=== PATIENT | female | born 1975 | race Caucasian/White ===

== ENCOUNTER 2017-02-07 13:03 | Inpatient (IN) | payer OTHER ==
[2017-02-07] MEDS ORDERED: Bupivacaine 0.5%/EPINEPHrine 1:200,000 50 ML MDV ONE (13:57)
[2017-02-07] MEDS ORDERED: Naloxone 0.4 MG/ML SDV IV PRN (16:57)
[2017-02-07] MEDS ORDERED: Sodium Chloride 0.9% 10 ML Syringe FLUSH PRN (17:06)
[2017-02-07] MEDS: Dextrose 5%-Lactated Ringers 1,000 ML IV SCH ×2 (17:27→23:26)
[2017-02-07] MEDS: HYDROmorphone/Normal Saline 15 MG/30 ML PCA IV PRN (17:28)
[2017-02-07] MEDS ORDERED: cefOXitin 2 GM in Sodium Chloride 0.9% 50 ML IV ONE (17:30)
[2017-02-07] MEDS: Pantoprazole 40 MG Vial IV SCH (17:41)
[2017-02-07] MEDS: Ondansetron 4 MG/2 ML SDV IVPUSH PRN (17:44)
[2017-02-07] MEDS: LORazepam 2 MG/ML MDV IVPUSH PRN (21:09)
[2017-02-07] MEDS ORDERED: hydrOXYzine HCl 50 MG/ML SDV IM PRN (21:36)
[2017-02-08] MEDS ORDERED: diphenhydrAMINE 50 MG/ML SDV IVPUSH PRN (00:03)
[2017-02-08] MEDS: diphenhydrAMINE 50 MG/ML SDV IVPUSH PRN ×2 (00:47→06:58)
[2017-02-08] MEDS: HYDROmorphone/Normal Saline 15 MG/30 ML PCA IV PRN ×3 (02:45→22:10)
[2017-02-08] MEDS: LORazepam 2 MG/ML MDV IVPUSH PRN ×2 (03:29→11:54)
[2017-02-08] MEDS: Ondansetron 4 MG/2 ML SDV IVPUSH PRN (06:15)
[2017-02-08] MEDS: Dextrose 5%-Lactated Ringers 1,000 ML IV SCH ×2 (06:15→23:35)
[2017-02-08] MEDS: Pantoprazole 40 MG Vial IV SCH (06:18)
[2017-02-08] MEDS: fentaNYL 25 MCG/HR Transdermal Patch TRDERM SCH (08:00)
--- NOTE | 2017-02-08 08:53 | PCM.HP ---
H&P History of Present Illness - General Date of Service: 02/08/17 Admit Problem/Dx: Admission Diagnosis/Problem Admission Diagnosis/Problem Abdominal pain Source of Information: Patient History Limitations: Reports: No limitations - History of Present Illness Onset of Symptoms: Reports: gradual Duration of Symptoms: Reports: Day(s): (5), Getting worse, Intermittent, Waxing/ waning Location: Reports: abdomen, generalized Quality: Reports: Ache, Other (twisting) Severity: moderate Improves with: Reports: Medication Worsens with: Reports: Eating, Movement Context: Reports: sick contact Associated Symptoms: Reports: nausea/vomiting Abdomen Pain Score (Numeric/FACES): 6 - Related Data Allergies/Adverse Reactions: Allergies Allergy/AdvReac Type Severity Reaction Status Date / Time morphine Allergy Itching Verified 02/07/17 20:14 NSAIDS (Non-Steroidal Allergy Other Verified 02/07/17 16:42 Anti-Inflamma tizanidine Allergy Other Verified 02/07/17 16:42 Home Medications: Home Meds ALPRAZolam [Xanax] PO DAILY 02/07/17 [History] Doxylamine Succinate [Unisom Sleep Aid] 25 mg PO BEDTIME PRN 02/07/17 [History] Gabapentin [Neurontin] 300 mg PO TID 02/07/17 [History] Hydrochlorothiazide 25 mg PO DAILY 02/07/17 [History] Losartan [Cozaar] 50 mg PO DAILY 02/07/17 [History] Potassium Chloride 10 meq PO DAILY 02/07/17 [History] Venlafaxine [Effexor XR] 150 mg PO DAILY 02/07/17 [History] oxyCODONE [Oxycodone HCl] 10 mg PO BID PRN 02/07/17 [History] Past Medical History Gastrointestinal History: Reports: Bowel obstruction 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, Musculoskeletal History: Reports: Back pain, chronic Psychiatric History: Reports: Anxiety Hematologic History: Reports: B12 deficiency - Past Surgical History HEENT Surgical History: Reports: Tonsillectomy GI Surgical History: Reports: Bariatric procedure Social & Family History - Family History Family Medical History: Noncontributory - Tobacco Use Smoking Status *Q: Light Tobacco Smoker Years of Tobacco use: 21 Packs/Tins Daily: 0 Used Tobacco, but Quit: No Second Hand Smoke Exposure: No - Caffeine Use Caffeine Use: Reports: Coffee - Alcohol Use Days Per Week of Alcohol Use: 1 Number of Drinks Per Day: 0 Total Drinks Per Week: 0 - Recreational Drug Use Recreational Drug Use: No H&P Review of Systems - Review of Systems: Review Of Systems: See Below General: Reports: weakness, fatigue HEENT: Reports: no symptoms Pulmonary: Reports: No Symptoms Cardiovascular: Reports: no symptoms Gastrointestinal: Reports: Abdominal pain (generalized), Nausea Genitourinary: Reports: no symptoms Musculoskeletal: Reports: no symptoms Skin: Reports: other (itches all over which she states is normal when she is on narcotics ) Psychiatric: Reports: anxiety (crying) Neurological: Reports: No Symptoms Hematologic/Lymphatic: Reports: no symptoms Immunologic: Reports: no symptoms Exam - Exam Exam: See Below - Vital Signs Vital Signs: Last Vital Signs Temp 96.4 F 02/08/17 07:00 Pulse 82 02/08/17 07:00 Resp 16 02/08/17 07:00 BP 111/71 02/08/17 07:00 Pulse Ox 96 02/08/17 07:00 Weight: 187 lb - Exam Quality Assessment: DVT prophylaxis General: moderate distress HEENT: PERRLA, Conjunctiva clear Neck: supple, trachea midline Lungs: Clear to auscultation, Normal respiratory effort Cardiovascular: regular rate, regular rhythm Abdomen: tenderness (mid epigastric and left upper and mid quadrants ) (Female) Exam: Deferred Rectal (Female) Exam: Deferred Back Exam: normal inspection Extremities: normal inspection Skin: warm, dry, intact Neurological: cranial nerves intact, reflexes equal bilateral Neuro Extensive - Mental Status: alert, oriented x3, normal cognition, memory intact Neuro Extensive - Motor, Sensory, Reflexes: CN II-XII intact Psychiatric: alert, anxious - Patient Data Lab Results last 24 hrs: Laboratory Results - last 24 hr 02/08/17 02/08/17 Range/Units 04:12 04:12 WBC 6.4 (4.5-11.0) K/uL RBC 3.86 (3.30-5.50) M/uL Hgb 11.6 L (12.0-15.0) g/dL Hct 35.5 L (36.0-48.0) % MCV 92 (80-98) fL MCH 30 (27-31) pg MCHC 33 (32-36) % Plt Count 278 (150-400) K/uL Sodium 145 (140-148) mmol/L Potassium 3.4 L (3.6-5.2) mmol/L Chloride 108 (100-108) mmol/L Carbon Dioxide 29 (21-32) mmol/L Anion Gap 11.4 (5.0-14.0) mmol/L BUN 3 L (7-18) mg/dL Creatinine 0.6 (0.6-1.0) mg/dL Est Cr Clr Drug Dosing 128.95 mL/min Estimated GFR (MDRD) > 60 (>60) Glucose 81 (74-106) mg/dL Calcium 8.0 L (8.5-10.1) mg/dL Phosphorus 3.7 (2.5-4.9) mg/dL Magnesium 1.7 L (1.8-2.4) mg/dL Ferritin 27 (8-388) ng/ml Total Bilirubin 0.2 (0.2-1.0) mg/dL AST 14 L (15-37) U/L ALT 21 (12-78) U/L Alkaline Phosphatase 54 (46-116) U/L Total Protein 6.1 L (6.4-8.2) g/dL Albumin 3.1 L (3.4-5.0) g/dL Globulin 3.0 (2.3-3.5) g/dL Albumin/Globulin Ratio 1.0 L (1.2-2.2) Vitamin B12 278 (193-986) pg/ml Folate 15.3 (8.6-58.9) ng/ml Result Diagrams: 02/08/17 04:12 02/08/17 04:12 *Q Meaningful Use (ADM) - VTE *Q VTE Criteria *Q: - Stroke *Q Stroke Criteria *Q: - AMI *Q AMI Criteria *Q: Problem List Initiated/Reviewed/Updated: Yes Orders Last 24hrs: Active Orders 24 hr Category Date Time Status Patient Status [ADT] Routine ADT 02/07/17 16:30 Active Ambulate [RC] QID Care 02/07/17 17:06 Active Intake and Output [RC] QSHIFT Care 02/07/17 17:18 Active Oxygen Therapy [RC] PRN Care 02/07/17 17:07 Active Peripheral IV Care [RC] . DIRECTED Care 02/07/17 17:18 Active Pulse Oximetry [RC] CONTINUOUS Care 02/07/17 17:13 Active Up to Chair [RC] QID Care 02/07/17 17:06 Active VTE/DVT Education [RC] Per Unit Routine Care 02/07/17 17:07 Active Verify Patient Consent Obtain [RC] ASDIRECTED Care 02/08/17 07:28 Active Vital Signs [RC] Q4H Care 02/07/17 17:07 Active Nothing per Oral Now Diet [DIET] Diet 02/07/17 Dinner Active Abdomen 2V AP Flat Upright [CR] Routine Exams 02/08/17 04:00 Taken Dextrose 5%-Lactated Ringers 1,000 ml Med 02/07/17 16:45 Active IV ASDIRECTED HYDROmorphone/Normal Saline [Dilaudid AUTO SERVICE STATION ATTENDANT 15 MG in NS Med 02/07/17 16:57 Active 30 ML] 0 mg IV ASDIRECTED PRN LORazepam [Ativan] Med 02/07/17 17:00 Active 0.5 mg IVPUSH Q4H PRN Naloxone [Narcan] Med 02/07/17 16:57 Active 0.1 mg IV ASDIRECTED PRN Ondansetron [Zofran] Med 02/07/17 16:59 Active 4 mg IVPUSH Q4H PRN Pantoprazole [Protonix IV] Med 02/09/17 09:00 Active 40 mg IV DAILY Pantoprazole [Protonix IV] Med 02/07/17 18:00 Active 40 mg IV Q12H Sodium Chloride 0.9% [Saline Flush] Med 02/07/17 17:06 Active 10 ml FLUSH ASDIRECTED PRN cefOXitin [Mefoxin] 2 gm Med 02/08/17 14:00 Active Sodium Chloride 0.9% [Normal Saline] 50 ml IV ONCALL diphenhydrAMINE [Benadryl] Med 02/08/17 00:03 Active 25 - 50 mg IVPUSH Q4H PRN fentaNYL [Duragesic] Med 02/08/17 07:30 Active 25 mcg TRDERM Q72H hydrOXYzine HCl [Vistaril] Med 02/07/17 21:36 Active 100 mg IM Q4H PRN Peripheral IV Insertion Adult [OM.PC] Routine Oth 02/07/17 17:06 Ordered Sequential Compression Device [OM.PC] Per Unit Routine Oth 02/07/17 17:13 Ordered Resuscitation Status Routine Resus Stat 02/07/17 17:06 Ordered Medication Orders Diphenhydramine HCl (Benadryl) 25 - 50 mg IVPUSH Q4H PRN PRN Reason: Itching Fentanyl (Duragesic) 25 mcg TRDERM Q72H [facility] Last Admin: 02/08/17 08:00 Dose: 25 mcg Hydromorphone HCl (Dilaudid Garage Worker 15 Mg In Ns 30 Ml) 0 mg IV ASDIRECTED PRN; Protocol PRN Reason: AUTO SERVICE 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 ATTENDANT PAIN CONTROL Last Admin: 02/08/17 02:45 Dose: 15 mg Admin: 02/07/17 17:28 Dose: 15 mg Hydroxyzine HCl (Vistaril) 100 mg IM Q4H PRN PRN Reason: Anxiety Last Admin: 02/07/17 22:04 Dose: 100 mg Dextrose/Lactated Ringer's (Dextrose 5%-Lactated Ringers) 1,000 mls @ 150 mls/ hr IV ASDIRECTED ALYSSA Last Admin: 02/08/17 06:15 Dose: 150 mls/hr Infusion: 02/08/17 06:07 Dose: 150 mls/hr Admin: 02/07/17 23:26 Dose: 150 mls/hr Infusion: 02/07/17 23:26 Dose: 150 mls/hr Admin: 02/07/17 17:27 Dose: 150 mls/hr Cefoxitin Sodium 2 gm/ Sodium (Chloride) 50 mls @ 100 mls/hr IV ONCALL ONE Stop: 02/08/17 14:29 Lorazepam (Ativan) 0.5 mg IVPUSH Q4H PRN PRN Reason: ANXIETY Last Admin: 02/08/17 03:29 Dose: 0.5 mg Admin: 02/07/17 21:09 Dose: 0.5 mg Naloxone HCl (Narcan) 0.1 mg IV ASDIRECTED PRN PRN Reason: decreased respiratory rate Ondansetron HCl (Zofran) 4 mg IVPUSH Q4H PRN PRN Reason: Nausea Last Admin: 02/08/17 06:15 Dose: 4 mg Admin: 02/07/17 17:44 Dose: 4 mg Pantoprazole Sodium (Protonix Iv) 40 mg IV Q12H ALYSSA Stop: 02/08/17 18:01 Last Admin: 02/08/17 06:18 Dose: 40 mg Admin: 02/07/17 17:41 Dose: 40 mg Pantoprazole Sodium (Protonix Iv) 40 mg IV DAILY ALYSSA Sodium Chloride (Saline Flush) 10 ml FLUSH ASDIRECTED PRN PRN Reason: Keep Vein Open Assessment: Partial Small Bowel Obstruction Plan: See Copy of orders Isabella Stephens
--- NOTE | 2017-02-08 08:57 | CR ---
Findings: Mildly prominent small bowel loop left midabdomen. There are a few air-fluid levels. Howev er contrast is now within the colon. Partial small bowel obstruction cannot be excluded.
[2017-02-08] MEDS ORDERED: Dexamethasone 4 MG/ML SDV ONE (09:43)
[2017-02-08] MEDS ORDERED: Ondansetron 4 MG/2 ML SDV ONE (09:43)
[2017-02-08] MEDS ORDERED: Neostigmine Methylsulfate 1 MG/ML 5 ML Syringe ONE (09:43)
[2017-02-08] MEDS ORDERED: Succinylcholine/Normal Saline 200 MG/10 ML Syringe ONE (09:43)
[2017-02-08] MEDS ORDERED: Propofol 200 MG/20 ML SDV ONE (09:43)
[2017-02-08] MEDS ORDERED: Rocuronium 50 MG/5 ML Vial ONE (09:43)
[2017-02-08] MEDS ORDERED: fentaNYL 250 MCG/5 ML SDV ONE ×2 (09:43→14:19)
[2017-02-08] MEDS ORDERED: Meropenem 500 MG SDV ONE (11:28)
[2017-02-08] MEDS ORDERED: Midazolam 1 MG/ML 2 ML SDV ONE (12:40)
[2017-02-08] MEDS: cefOXitin 2 GM in Sodium Chloride 0.9% 50 ML IV ONE ×2 (12:47→13:29)
[2017-02-08] MEDS ORDERED: Lactated Ringers 1,000 ML ONE (13:22)
[2017-02-08] MEDS ORDERED: fentaNYL 100 MCG/2 ML SDV IVPUSH ONE (14:40)
[2017-02-08] MEDS ORDERED: hydrOXYzine HCl 50 MG/ML SDV IM ONE (14:40)
[2017-02-08] MEDS ORDERED: Meperidine PF 100 MG/ML Syringe IM ONE (15:15)
[2017-02-08] MEDS ORDERED: Ondansetron 4 MG/2 ML SDV IVPUSH ONE (15:45)
[2017-02-08] MEDS: MVI, Adult with Vitamin K 10 ML, Chromium/Copper/Mang/Selen/Zn 1 ML in Dextrose 5%-Lact... IV SCH ×3 (17:50)
[2017-02-08] MEDS: cefOXitin 2 GM in Sodium Chloride 0.9% 50 ML IV SCH (17:50)
[2017-02-08] MEDS: VERIFY FENTANYL PATCH TOP SCH ×2 (17:52→20:35)
[2017-02-08] MEDS ORDERED: Potassium Phosphates 20 MMOLE in Sodium Chloride 0.9% 250 ML IV ONE (18:00)
[2017-02-08] MEDS: hydrOXYzine HCl 50 MG/ML SDV IM PRN ×2 (19:23→23:36)
[2017-02-08] MEDS: Cyclobenzaprine 10 MG Tab PO PRN (20:33)
[2017-02-08] MEDS: Gabapentin 300 MG Cap PO SCH (20:33)
[2017-02-08] MEDS ORDERED: Potassium Phosphates 25 MMOLE in Sodium Chloride 0.9% 250 ML IV ONE (21:00)
[2017-02-08] MEDS: Magnesium Sulfate/Water 2 GM in Premix Bag 1 BAG IV SCH (22:12)
[2017-02-09] MEDS: cefOXitin 2 GM in Sodium Chloride 0.9% 50 ML IV SCH ×4 (00:52→18:06)
[2017-02-09] MEDS: LORazepam 2 MG/ML MDV IVPUSH PRN ×5 (00:52→18:28)
[2017-02-09] MEDS: Pantoprazole 40 MG Vial IV SCH (05:30)
[2017-02-09] MEDS: Magnesium Sulfate/Water 2 GM in Premix Bag 1 BAG IV SCH ×4 (05:31→22:47)
[2017-02-09] MEDS ORDERED: Pantoprazole 40 MG Vial IV SCH (09:00)
[2017-02-09] MEDS: Losartan 50 MG Tab PO SCH (09:18)
[2017-02-09] MEDS: Venlafaxine 75 MG Cap.ER PO SCH (09:22)
[2017-02-09] MEDS: Gabapentin 300 MG Cap PO SCH ×3 (09:22→20:08)
[2017-02-09] MEDS: Cyanocobalamin (Vitamin B12) 1,000 MCG/ML SDV IM SCH (09:26)
[2017-02-09] MEDS: VERIFY FENTANYL PATCH TOP SCH ×2 (09:27→20:08)
[2017-02-09] MEDS: hydrOXYzine HCl 50 MG/ML SDV IM PRN ×2 (10:29→16:40)
[2017-02-09] MEDS: Dextrose 5%-Lactated Ringers 1,000 ML IV SCH (10:36)
[2017-02-09] MEDS ORDERED: Iron Sucrose Complex 500 MG in Sodium Chloride 0.9% 250 ML IV SCH (12:00)
[2017-02-09] MEDS: Cyclobenzaprine 10 MG Tab PO PRN ×2 (12:59→19:46)
[2017-02-09] MEDS: MVI, Adult with Vitamin K 10 ML, Chromium/Copper/Mang/Selen/Zn 1 ML in Dextrose 5%-Lact... IV SCH ×3 (16:40)
[2017-02-09] MEDS: HYDROmorphone/Normal Saline 15 MG/30 ML PCA IV PRN (17:01)
[2017-02-10] MEDS: Dextrose 5%-Lactated Ringers 1,000 ML IV SCH (00:32)
[2017-02-10] MEDS: cefOXitin 2 GM in Sodium Chloride 0.9% 50 ML IV SCH ×5 (00:33→23:56)
[2017-02-10] MEDS: LORazepam 2 MG/ML MDV IVPUSH PRN (01:38)
[2017-02-10] MEDS: Cyclobenzaprine 10 MG Tab PO PRN ×2 (01:38→15:44)
[2017-02-10] MEDS: Magnesium Sulfate/Water 2 GM in Premix Bag 1 BAG IV SCH ×4 (03:22→21:34)
[2017-02-10] MEDS: Pantoprazole 40 MG Vial IV SCH (05:27)
[2017-02-10] MEDS ORDERED: Bupivacaine 0.5% 50 ML MDV ONE (06:23)
[2017-02-10] MEDS ORDERED: Lidocaine 1% with EPINEPHrine 1:100,000 50 ML MDV ONE (06:23)
[2017-02-10] MEDS ORDERED: Meropenem 500 MG SDV ONE (06:23)
[2017-02-10] MEDS ORDERED: fentaNYL 100 MCG/2 ML SDV ONE (07:22)
[2017-02-10] MEDS ORDERED: Midazolam 1 MG/ML 2 ML SDV ONE (07:22)
[2017-02-10] MEDS ORDERED: Propofol 200 MG/20 ML SDV ONE (07:22)
[2017-02-10] MEDS: Losartan 50 MG Tab PO SCH (12:45)
[2017-02-10] MEDS: Venlafaxine 75 MG Cap.ER PO SCH (12:48)
[2017-02-10] MEDS: VERIFY FENTANYL PATCH TOP SCH ×2 (12:51→20:42)
[2017-02-10] MEDS: Cyanocobalamin (Vitamin B12) 1,000 MCG/ML SDV IM SCH (13:08)
[2017-02-10] MEDS: Gabapentin 300 MG Cap PO SCH ×3 (13:09→20:41)
[2017-02-10] MEDS: MVI, Adult with Vitamin K 10 ML, Chromium/Copper/Mang/Selen/Zn 1 ML in Dextrose 5%-Lact... IV SCH ×3 (16:56)
[2017-02-10] MEDS: hydrOXYzine HCl 50 MG/ML SDV IM PRN (18:39)
[2017-02-10] MEDS: HYDROmorphone/Normal Saline 15 MG/30 ML PCA IV PRN (18:39)
[2017-02-11] MEDS: LORazepam 2 MG/ML MDV IVPUSH PRN ×3 (00:24→23:50)
[2017-02-11] MEDS: hydrOXYzine HCl 50 MG/ML SDV IM PRN ×2 (00:24→09:40)
[2017-02-11] MEDS: Dextrose 5%-Lactated Ringers 1,000 ML IV SCH ×2 (02:02→09:40)
[2017-02-11] MEDS: Magnesium Sulfate/Water 2 GM in Premix Bag 1 BAG IV SCH ×3 (04:00→16:31)
[2017-02-11] MEDS: Pantoprazole 40 MG Vial IV SCH (05:31)
[2017-02-11] MEDS: cefOXitin 2 GM in Sodium Chloride 0.9% 50 ML IV SCH ×4 (06:07→23:43)
[2017-02-11] MEDS: fentaNYL 25 MCG/HR Transdermal Patch TRDERM SCH (07:55)
[2017-02-11] MEDS: Gabapentin 300 MG Cap PO SCH ×3 (08:04→20:42)
[2017-02-11] MEDS: Venlafaxine 75 MG Cap.ER PO SCH (08:04)
[2017-02-11] MEDS: Losartan 50 MG Tab PO SCH (08:04)
[2017-02-11] MEDS: VERIFY FENTANYL PATCH TOP SCH ×2 (08:05→20:28)
[2017-02-11] MEDS: HYDROmorphone 2 MG Tab PO PRN ×4 (09:41→23:40)
--- NOTE | 2017-02-11 11:35 | PN ---
DATE OF SERVICE: 02/11/2017 SUBJECTIVE: Saima is postop day 3. She has been having difficulty with pain management. She feels like she would rather be on oral medication versus the DIGITAL ACCOUNT DIRECTOR. She has been up ambulating, had delayed primary closure. She did have an allergic reaction to Venofer, and we will be getting the Feraheme this morning and tomorrow pretreated by the ordered medication, tolerating step-1 gastric bypass diet. OBJECTIVE: GENERAL: Saima Jesus is a pleasant female. She is alert and orientated. SKIN: Warm and dry. VITAL SIGNS: Stable. HEENT: Negative. NECK: Supple. HEART: Regular rate and rhythm. LUNGS: Clear. ABDOMEN: Dressings dry and intact. Abdominal binder is on. EXTREMITIES: SCDs are on, and there is no peripheral edema. ASSESSMENT: 1. Exploratory laparotomy, small bowel resection, small bowel volvulus, bowel decompression, and closure of internal hernia, and repair of incisional hernia. Date of surgery 02/07/2017. 2. Delayed primary closure, 02/10/2017. PLAN: 1. Discontinue DIGITAL ACCOUNT DIRECTOR and continuous pulse ox. 2. Feraheme, orders faxed to pharmacy. 3. Dilaudid 2 mg 1 to 2 every 4 hours p.r.n. pain p.o. 4. Full liquid diet. 5. Good pulmonary toilet encouraged. 6. We will evaluate p.r.n. or in a.m. Isabella Dias PA-C /[id number]
[2017-02-11] MEDS: Cyclobenzaprine 10 MG Tab PO PRN (12:37)
[2017-02-11] MEDS ORDERED: Famotidine 20 MG/2 ML SDV IV SCH (12:45)
[2017-02-11] MEDS ORDERED: diphenhydrAMINE 50 MG/ML SDV IV SCH (12:45)
[2017-02-11] MEDS ORDERED: Hydrocortisone Sodium Succinate 100 MG/2 ML SDV IV SCH (12:45)
[2017-02-11] MEDS ORDERED: SODIUM FERRIC GLUCONATE CMPLEX IV SCH (13:00)
[2017-02-11] MEDS ORDERED: SODIUM CHLORIDE 0.9% IV SCH (13:00)
--- NOTE | 2017-02-11 14:08 | PN ---
DATE OF SERVICE: 02/09/2017 The patient has been afebrile with stable vital signs. There have been pain control issues. She is normally on oxycodone, Neurontin, and Alprazolam at home, which probably gives her some degree of tolerance. The narcotics at any rate seems to be satisfactory this morning. We will otherwise keep her n.p.o., except ice chips and some sips of water. We will plan to do a delayed primary closure, probably tomorrow morning. Rm Ochoa MD /[id number]
[2017-02-11] MEDS: MVI, Adult with Vitamin K 10 ML, Chromium/Copper/Mang/Selen/Zn 1 ML in Dextrose 5%-Lact... IV SCH ×3 (18:03)
[2017-02-12] MEDS: Cyclobenzaprine 10 MG Tab PO PRN ×3 (01:48→22:42)
[2017-02-12] MEDS: Dextrose 5%-Lactated Ringers 1,000 ML IV SCH (03:09)
[2017-02-12] MEDS: HYDROmorphone 2 MG Tab PO PRN ×5 (03:32→22:42)
[2017-02-12] MEDS: Pantoprazole 40 MG Vial IV SCH (06:10)
[2017-02-12] MEDS: cefOXitin 2 GM in Sodium Chloride 0.9% 50 ML IV SCH (06:10)
[2017-02-12] MEDS: LORazepam 2 MG/ML MDV IVPUSH PRN ×2 (06:18→13:28)
[2017-02-12] MEDS ORDERED: Bisacodyl 10 MG Supp RECTAL PRN (07:45)
[2017-02-12] MEDS ORDERED: Bisacodyl 10 MG Supp RECTAL ONE (09:00)
[2017-02-12] MEDS: VERIFY FENTANYL PATCH TOP SCH ×2 (09:08→20:34)
--- NOTE | 2017-02-12 09:17 | PN ---
DATE OF SERVICE: 02/12/2017 SUBJECTIVE: Saima has not had a bowel movement. She has been up ambulating, tolerating the step-2 gastric bypass diet well. She is developing on her right upper lip a cold sore, which she takes Valtrex for. Pain is better controlled using the oral Dilaudid. REVIEW OF SYSTEMS: Remainder of review of systems negative for any pertinent positives and negatives. OBJECTIVE: GENERAL: Saima Jesus is a 41-year-old female. VITAL SIGNS: TPR is 98.2, 94, 18, blood pressure 113/63. HEENT: Negative. NECK: Supple. HEART: Regular rate and rhythm. LUNGS: Clear. ABDOMEN: Occlusive dressing is on. DEWAYNE drain is intact, draining a light pink drainage of 315 mL. EXTREMITIES: Without peripheral edema. ASSESSMENT: 1. Exploratory laparotomy, small-bowel resection, small bowel volvulus, bowel decompression, and closure of internal hernia, and repair of incisional hernia. Date of surgery 02/07/2017. 2. Delayed primary closure, 02/10/2017. PLAN: 1. Dulcolax suppository now 1 time. 2. Dulcolax suppository per rectum b.i.d. p.r.n. 3. Discontinue Vistaril IM. 4. Atarax 25 mg q.6 hours p.r.n. pain. 5. Dressing off, march shower. 6. Valtrex 2000 mg b.i.d. one day. 7. Saline lock IV. Oral intake yesterday was 2039. 8. Good pulmonary toilet. 9. We will evaluate p.r.n. or in a.m. Isabella Dias PA-C /[id number]
[2017-02-12] MEDS: Losartan 50 MG Tab PO SCH (09:19)
[2017-02-12] MEDS: Gabapentin 300 MG Cap PO SCH ×3 (09:20→20:35)
[2017-02-12] MEDS: valACYclovir 1,000 MG Tab PO SCH ×2 (09:20→20:35)
[2017-02-12] MEDS: Venlafaxine 75 MG Cap.ER PO SCH (09:20)
[2017-02-12] MEDS ORDERED: SODIUM FERRIC GLUCONATE CMPLEX IV ONE (11:30)
[2017-02-12] MEDS ORDERED: diphenhydrAMINE 50 MG/ML SDV IV ONE (11:30)
[2017-02-12] MEDS ORDERED: SODIUM CHLORIDE 0.9% IV ONE (11:30)
[2017-02-12] MEDS ORDERED: Hydrocortisone Sodium Succinate 100 MG/2 ML SDV IV ONE (11:30)
[2017-02-12] MEDS ORDERED: Famotidine 20 MG/2 ML SDV IV ONE (11:30)
[2017-02-12] MEDS: hydrOXYzine HCl 25 MG Tab PO PRN (17:59)
[2017-02-13] MEDS: hydrOXYzine HCl 25 MG Tab PO PRN ×3 (02:21→18:29)
[2017-02-13] MEDS: Pantoprazole 40 MG Tab.CR PO SCH (07:43)
[2017-02-13] MEDS: HYDROmorphone 2 MG Tab PO PRN ×3 (07:50→16:23)
[2017-02-13] MEDS ORDERED: Polyethylene Glycol 3350 Powder 119 GM Bottle PO ONE (08:00)
[2017-02-13] MEDS: Simethicone 80 MG Tab.Chew PO SCH ×4 (09:03→20:38)
--- NOTE | 2017-02-13 09:16 | PN ---
DATE OF SERVICE: 02/13/2017 SUBJECTIVE: Saima did have one small BM yesterday, but she is still having quite a bit in the way of pain on the left middle and lower quadrant, reports increased gas pain as well as surgical pain. She has been up ambulating. Oral intake was 3550. She has no other concerns or questions. OBJECTIVE: GENERAL: Saima is a pleasant 41-year-old female. VITAL SIGNS: TPR is 97.3, 96, 16, blood pressure 112/75. HEENT: Negative. NECK: Supple. HEART: Regular rate and rhythm. LUNGS: Clear. ABDOMEN: Reveals the DEWAYNE drain intact, draining a pink serosanguineous drainage and staple line in place. There is tenderness to the left of the incision, and tenderness is what would be expected after laparotomy. EXTREMITIES: Without peripheral edema. ASSESSMENT: 1. Exploratory laparotomy, small bowel resection, small bowel volvulus, bowel decompression, closure of internal hernia, and repair of incisional hernia. Date of surgery 02/07/2017. 2. Delayed primary closure 02/10/2017. PLAN: 1. MiraLAX 119 g in 32 ounces of Gatorade today. 2. Senna Plus 2 tablets p.o. b.i.d. 3. Discontinue DEWAYNE drain. 4. Simethicone 80 mg with meals and at bedtime two decrease gas pain. 5. Good pulmonary toilet encouraged. 6. We will evaluate p.r.n. or in a.m. Isabella Dias PA-C /[id number]
[2017-02-13] MEDS: VERIFY FENTANYL PATCH TOP SCH ×2 (09:31→20:39)
[2017-02-13] MEDS: Losartan 50 MG Tab PO SCH (09:31)
[2017-02-13] MEDS: Gabapentin 300 MG Cap PO SCH ×3 (09:31→20:38)
[2017-02-13] MEDS: Venlafaxine 75 MG Cap.ER PO SCH (09:32)
[2017-02-13] MEDS: Cyclobenzaprine 10 MG Tab PO PRN ×2 (11:34→20:38)
[2017-02-13] MEDS ORDERED: MVI, Adult with Vitamin K 10 ML, Chromium/Copper/Mang/Selen/Zn 1 ML in Dextrose 5%-Lact... IV SCH ×3 (16:00)
[2017-02-14] MEDS: HYDROmorphone 2 MG Tab PO PRN ×5 (00:04→18:32)
[2017-02-14] MEDS: Pantoprazole 40 MG Tab.CR PO SCH (07:27)
[2017-02-14] MEDS: Simethicone 80 MG Tab.Chew PO SCH ×4 (07:27→20:53)
[2017-02-14] MEDS: fentaNYL 25 MCG/HR Transdermal Patch TRDERM SCH (07:29)
[2017-02-14] MEDS: Doxycycline 100 MG Cap PO SCH ×2 (08:41→20:53)
[2017-02-14] MEDS: Bisacodyl 5 MG Tab PO SCH ×2 (08:41→20:25)
[2017-02-14] MEDS: Polyethylene Glycol 3350 Powder 119 GM Bottle PO SCH ×2 (08:42→20:24)
[2017-02-14] MEDS: hydrOXYzine HCl 25 MG Tab PO PRN ×2 (08:43→20:58)
[2017-02-14] MEDS: Losartan 50 MG Tab PO SCH (08:45)
[2017-02-14] MEDS: Venlafaxine 75 MG Cap.ER PO SCH (08:46)
[2017-02-14] MEDS: VERIFY FENTANYL PATCH TOP SCH ×2 (08:47→20:25)
[2017-02-14] MEDS: Gabapentin 300 MG Cap PO SCH ×3 (08:47→20:53)
--- NOTE | 2017-02-14 10:19 | PN ---
DATE OF SERVICE: 02/14/2017 SUBJECTIVE: Saima had MiraLAX yesterday and she started Senna Plus 2 tabs twice daily. She has not had a bowel movement yet. She is passing gas. Oral intake 2720, output 1600. She has been ambulating frequently in the [place]. She does report right upper arm swelling, pain, warmth, and redness. She reports that her IV had started to bother her, IV was removed and the redness and the symptoms as stated have increased and her arm is starting to bother her quite a bit. REVIEW OF SYSTEMS: Remainder of review of systems negative for any pertinent positives and negatives. OBJECTIVE: GENERAL: Saima Jesus is a 41-year-old female. She is alert and orientated, sitting up in bed. VITAL SIGNS: TPR 97.9, 87, 18. Blood pressure 115/69. HEENT: Negative. NECK: Supple. HEART: Regular rate and rhythm. LUNGS: Clear. ABDOMEN: [place] intact. Abdominal binder is on. There is 4x4s over the DEWAYNE drain site. EXTREMITIES: Without peripheral edema. SKIN: Left arm above her antecubital area, an area of about 5 inches wide and almost extensor, the entire circumference of her arm is warm, pink, swollen, and tender. ASSESSMENT: 1. Superficial cellulitis of left arm secondary to IV infiltration. 2. Exploratory laparotomy, small bowel resection, small bowel volvulus, bowel decompression, closure of internal hernia, and repair of incisional hernia. Date of surgery 02/07/2017. 3. Delayed primary closure, 02/10/2017. PLAN: 1. Rx MiraLAX 119 g p.o. b.i.d. mixed in 32 ounces of G2 or Powerade. 2. Dulcolax tabs 20 mg b.i.d. 3. Doxycycline 100 mg b.i.d. p.o. 4. Good pulmonary toilet encouraged. 5. We will evaluate p.r.n. or in a.m. Isabella Dias PA-C /[id number]
[2017-02-14] MEDS: Cyclobenzaprine 10 MG Tab PO PRN (11:29)
[2017-02-15] MEDS: HYDROmorphone 2 MG Tab PO PRN ×2 (00:59→07:08)
[2017-02-15] MEDS: Cyclobenzaprine 10 MG Tab PO PRN (02:58)
[2017-02-15 07:18] VITALS: BP 120/67
[2017-02-15] MEDS: Simethicone 80 MG Tab.Chew PO SCH (07:23)
[2017-02-15] MEDS: Pantoprazole 40 MG Tab.CR PO SCH (07:24)
--- NOTE | 2017-02-15 08:36 | OR ---
DATE OF PROCEDURE: 02/08/2017 PREOPERATIVE DIAGNOSIS: Partial small bowel obstruction. POSTOPERATIVE DIAGNOSES: 1. High-grade partial small bowel obstruction secondary to small bowel volvulus via the internal hernia. 2. Marked distention of the small bowel. 3. Incisional hernia. OPERATIVE PROCEDURE: Exploratory laparotomy with lysis of adhesions, 1. Reduction of small bowel volvulus and closure of internal hernia (77885). 2. Small bowel resection (44716). 3. Enterotomy for tube decompression of small bowel (79068). 4. Repair of the incarcerated incisional hernia (93534). ANESTHESIA: General. LAUNDRY OPERATOR FINISHING: Isabella Dias PA-C. INDICATIONS FOR PROCEDURE: This is a 41-year-old presenting with what appeared to be a protracted period of partial obstructive-type symptoms after initial admission and preoperative observation, the patient continues to have quite a bit in the way of discomfort, and the plan is to proceed with an exploratory laparotomy. The abdominal x-rays this morning show a fair bit of small bowel distention. Given this, we will proceed with a laparotomy as laparoscopy would place the patient at significant risk for bowel injury and intraperitoneal spill of GI contents. The potential risks of procedure including bleeding, infection, injury to underlying viscera, possible leaks from the various GI tract closures as well as possibility of cardiopulmonary, septic, or hemorrhagic complications leading to were discussed, and the patient wishes to proceed. DETAILS OF PROCEDURE: The patient was taken to the operating room and placed in the supine position. After general endotracheal anesthesia was induced, a Stoddard catheter was inserted and the abdomen was prepped and draped. An orogastric tube was also placed at this time. An upper midline incision was made and carried down through the full-thickness abdominal wall. Upon entering the peritoneal cavity, the patient was noted to have a markedly distended small bowel. There was a small bowel volvulus with a large portion of the small bowel passing through the mesenteric defect underlying the jejunojejunostomy from a left to right direction somewhat unusual compared to the usual orientation of these volvulus. This was eventually attempted to be reduced but the distention was such that the area could not be entirely reduced and at a relatively thinner point the small bowel was divided and this allowed reorientation of the components of the small bowel in appropriate location. There was an area that was quite deserosalized and poorly vascularized, this segment of small bowel was resected. The mesentery was quite edematous, but otherwise, the remainder of the small bowel was viable in appearance. A tube enterotomy was then placed in the proximal end of the divided small bowel and a [place] sump tube positioned there and the small bowel was then decompressed, which involved both decompression of the biliopancreatic limb as well as the Jamila limb. Once this was accomplished, the small bowel continuity was accomplished with a [id number] enteroenterotomy between the divided ends of the small bowel. This section of the bowel resected was within the proximal portion of the common limb, this was accomplished with two internal firings of the ROSSY urrutia loads. Common opening was then closed transversely with the same stapler and angles of the anastomosis and mesenteric defect approximated with some 0 Ethibond stitch along with fibrin sealant. At this point, the small bowel mesentery was closed with a running 2-0 silk stitch and no further problems were noted intraoperatively. Upon entering the abdomen, the patient was noted to have an incarcerated incisional hernia. This looked like a previous trocar site which contained some omentum and this had been reduced. At this point, the midline fascia was approximated with a #2 Vicryl stitch and the skin and subcutaneous tissue were felt be high risk for wound infection; therefore, packed open for a planned delayed primary closure in 48 hours. The patient was taken to the recovery room in satisfactory condition. Physician general assistant, Isabella Dias, played an essential role in assisting in this case helping to position the patient, retracting structures as needed, as well as suturing and cutting sutures when indicated. Her presence improved the patient's safety and decreased the operative time. Rm Ochoa MD /[id number]
[2017-02-15] MEDS: VERIFY FENTANYL PATCH TOP SCH (09:33)
[2017-02-15] MEDS: Gabapentin 300 MG Cap PO SCH (09:45)
[2017-02-15] MEDS: Venlafaxine 75 MG Cap.ER PO SCH (09:45)
[2017-02-15] MEDS: Bisacodyl 5 MG Tab PO SCH (09:46)
[2017-02-15] MEDS: Losartan 50 MG Tab PO SCH (09:46)
[2017-02-15] MEDS: Doxycycline 100 MG Cap PO SCH (09:46)
--- NOTE | 2017-02-16 02:01 | DISCH ---
ADMISSION DIAGNOSES: 1. Partial small bowel obstruction. 2. Status post Jamila-en-Y gastric bypass surgery. 3. Unspecified surgical malabsorption. 4. Chronic back pain. 5. Anxiety. 6. B12 deficiency. 7. Hypertension. 8. Nicotine addiction. DISCHARGE DIAGNOSES: 1. Exploratory laparotomy, small bowel resection, small bowel volvulus, bowel decompression and closure of internal hernia, and repair of incisional hernia on 02/07/2017. 2. Delayed primary closure 02/10/2017 for her superficial cellulitis of left arm secondary to IV infiltration. HISTORY: Saima Jesus is a 41-year-old female who presented to the emergency room on 02/06/2017 in [facility] on [address]. She had a CT scan, which revealed a partial small bowel obstruction. She was a direct admit to [place], [place]. After preoperative evaluation, discussion of possible risks and possible complications, she had her surgery on 02/07/2017. HOSPITAL COURSE: Saima had her exploratory laparotomy on 02/07/2017. She had no operative complications. On postop day 2, she had delayed primary closure. Ferritin was low and she was given adequate iron infusions. On 02/12, she started to develop a cold sore, was given Valtrex 2000 mg b.i.d. one day. Her bowels were stimulated and she did have a bowel movement on 02/14/2017. Magnesium and potassium were replaced appropriately. She received dietary instructions, and on 02/15/2017, Saima was able to be discharged to home. PHYSICAL EXAMINATION: GENERAL: Saima Jesus is a 41-year-old female. She is alert and orientated. SKIN: Warm and dry. Color remains to be pale. HEART: Regular rate and rhythm. LUNGS: Clear. ABDOMEN: In jasbir. Incision looks good. Abdominal binder is on. EXTREMITIES: Without peripheral edema. DISPOSITION: Discharged to home. CONDITION: Stable and improving. FOLLOWUP APPOINTMENT: With Isabella Dias PA-C, on 02/20/2017 at 11:00 a.m. at [facility]. HOME MEDICATIONS: Doxycycline 100 mg b.i.d. #22, Dilaudid 2 mg 1 to 2 every 6 hours p.r.n. pain #50, fentanyl patch. She is to take this off on Saturday02/18/2017. Hydroxyzine 25 mg oral q.6 hours p.r.n. additional pain #30. She is to resume her home medications. Xanax use as directed p.r.n., hydrochlorothiazide 25 mg oral daily, Cozaar 50 mg oral daily, potassium chloride 10 mEq oral daily, Effexor 150 mg oral daily, and discontinue oxycodone while taking the Dilaudid. DIET AFTER DISCHARGE: Step 4 gastric bypass diet. Drink 8 to 10 glasses of water a day. ACTIVITY: As tolerated. No lifting greater than 10 pounds for 6 weeks. Walk inside your home 6 times daily. Driving, do not drive. May shower. Notify provider if any fever, increased pain, nausea, or vomiting. Keep site clean and dry. Wear abdominal binder for 6 weeks and then as tolerated. Use incentive spirometer 10 times every hour while awake for 2 weeks.
--- NOTE | 2017-02-18 22:32 | OR ---
DATE OF PROCEDURE: 02/10/2017 PREOPERATIVE DIAGNOSIS: Open abdominal incision. POSTOPERATIVE DIAGNOSIS: Open abdominal incision. PROCEDURE: Delayed primary closure of open abdominal incision. ANESTHESIA: IV sedation plus local. INDICATION FOR PROCEDURE: This is a 41-year-old status post open laparotomy with bowel resection with some inherent contamination of the incision. The skin and subcutaneous tissue were left open for a planned delayed primary closure. At this time, potential risks including bleeding and infection were reviewed, and the patient wishes to proceed. DETAILS OF PROCEDURE: The patient was taken to the operating room and placed in a supine position. IV sedation was administered after which the abdominal dressing was taken down. The wound was still inspected and found to be clean. Incision was then prepped and draped, anesthetized with 1% lidocaine mixed with Marcaine and irrigated with meropenem-containing saline solution. This was an upper midline incision which was felt to be satisfactory to close this time. No drains were placed. Two layers of 3-0 and 4-0 Vicryl stitch were then placed deep and then jasbir for the skin. Dressing was applied. The patient was taken to the recovery room in satisfactory condition. Rm Ochoa MD /[id number]
== END 2017-02-15 10:20 | disposition home or self-care (01) | DRG 345 ==
LOC: UNDOADMIN 16:22 → JP.2SS 16:22
PROVIDERS: ADMIT Surgery; ATTEND Surgery
PROC: 0DBA0ZX Excision of Jejunum, Open Approach, Diagnostic (ICD-10-PCS; principal; 2017-02-08)
PROC: 0WQF0ZZ Repair Abdominal Wall, Open Approach (ICD-10-PCS; principal; 2017-02-08)
PROC: 0D9A0ZZ Drainage of Jejunum, Open Approach (ICD-10-PCS; principal; 2017-02-08)
PROC: 0WQF0ZZ Repair Abdominal Wall, Open Approach (ICD-10-PCS; 2017-02-10)
DX: K46.0 Unspecified abdominal hernia with obstruction, without gangrene (principal); K91.2 Postsurgical malabsorption, not elsewhere classified; L03.114 Cellulitis of left upper limb; K43.0 Incisional hernia with obstruction, without gangrene; K63.89 Other specified diseases of intestine; Z98.84 Bariatric surgery status; Z98.0 Intestinal bypass and anastomosis status; M54.9 Dorsalgia, unspecified; G89.29 Other chronic pain; F41.9 Anxiety disorder, unspecified; I10 Essential (primary) hypertension; F17.210 Nicotine dependence, cigarettes, uncomplicated; E53.8 Deficiency of other specified B group vitamins; B00.1 Herpesviral vesicular dermatitis; Z88.6 Allergy status to analgesic agent; Z88.5 Allergy status to narcotic agent; Z88.8 Allergy status to other drugs, medicaments and biological substances
CPT/HCPCS: 36415; 74020; 74020-26; 80053; 82607; 82728; 82746; 83735; 84100; 85027; 88302; 88307; 94762; A9270-GY; C9113; J0694; J1100; J1170; J1200; J1720; J2060; J2175; J2185; J2250; J2405; J2704; J2916; J3010; J3410; J3420; J3475; J3490; J7042; J7050; J7120; S0028